=== PATIENT | female | born 1980 ===

== ENCOUNTER 2017-02-05 20:32 | Emergency (ER) | payer BC, OTHER ==
[2017-02-05 20:41] VITALS: BP 131/81
--- NOTE | 2017-02-05 20:42 | UC ---
[facility] HPI - HPI Summary HPI Summary: abscess behind last upper right molar---per patient it has doubled in size today -feels like she cannot close her mouth - History of Current Complaint Chief Complaint: UCDentalProblem Stated Complaint: DENTAL PAIN Time Seen by Provider: 02/05/17 20:39 Hx Obtained From: Patient Hx Last Menstrual Period: 01/20/17 ?: No Onset/Duration: Gradual Onset, Lasting Days - 2, Worse Since - today Severity: Moderate Pain Intensity: 7 Pain Scale Used: 0-10 Numeric Aggravating: Nothing Alleviating: Nothing Related History: Previous Dental Care on Same Tooth, Swelling - Allergies/Home Medications Allergies/Adverse Reactions: Allergies Allergy/AdvReac Type Severity Reaction Status Date / Time No Known Allergies Allergy Verified 02/05/17 20:40 PMH/Surg Hx/FS Hx/Imm Hx Previously Healthy: Yes - Surgical History Surgical History: Yes Surgery Procedure, Year, and Place: C-SECTIONS X2 - Family History Known Family History: Positive: None - Social History Occupation: Employed Full-time Lives: With Family Alcohol Use: None Substance Use Type: None Smoking Status (MU): Light Every Day Tobacco Smoker Amount Used/How Often: 1/2-1 ppd Have You Smoked in the Last Year: Yes Household Exposure Type: Cigarettes Cessation Counseling: Counseled 3+Min - 10 Min Review of Systems Constitutional: Negative Skin: Negative Eyes: Negative ENT: Dental Pain Respiratory: Negative Cardiovascular: Negative Gastrointestinal: Negative Genitourinary: Negative Motor: Negative Neurovascular: Negative Musculoskeletal: Negative Neurological: Negative Psychological: Negative All Other Systems Reviewed And Are Negative: Yes Physical Exam Triage Information Reviewed: Yes Appearance: Well-Appearing, Well-Nourished, Pain Distress Vital Signs: Initial Vital Signs Temp 98.1 F 02/05/17 20:34 Pulse 87 02/05/17 20:34 Resp 18 02/05/17 20:34 BP 131/81 02/05/17 20:34 Pulse Ox 96 02/05/17 20:34 Vital Signs Reviewed: Yes Eye Exam: Normal Eyes: Positive: Conjunctiva Clear ENT Exam: Normal ENT: Positive: Normal ENT inspection, Hearing grossly normal, Pharynx normal. Negative: Nasal congestion, Nasal drainage, Tonsillar swelling, Trismus, Muffled /hoarse voice Dental Exam: Normal Dental: Positive: Abscess @ - right upper jaw behind last molar-opened and drained during examination-purlent drainage, and immediate pain relief Neck exam: Normal Neck: Positive: Supple, Nontender Respiratory Exam: Normal Respiratory: Positive: Chest non-tender, No respiratory distress, No accessory muscle use Cardiovascular Exam: Normal Cardiovascular: Positive: RRR, Pulses Normal, Brisk Capillary Refill Musculoskeletal Exam: Normal Musculoskeletal: Positive: Strength Intact, ROM Intact, No Edema Neurological Exam: Normal Neurological: Positive: Alert, Muscle Tone Normal Psychological Exam: Normal Skin Exam: Normal Dental Complaint Course/Dx - Course Course Of Treatment: clindamycin, ibuprofen, warm water rinces, soft diet follow with dentist Thursday as planned - Differential Dx/Diagnosis Differential Diagnosis/Dx: Dental Abscess, Odontogenic Pain, Peridontic Disease Provider Diagnoses: Dental infection with abscess Discharge - Discharge Plan Condition: Stable Disposition: HOME Prescriptions: Clindamycin Cap(NF) [Clindamycin Cap 300 mg Cap(NF)] 300 mg PO TID #28 cap Patient Education Materials: Ibuprofen (By mouth), How to Stop Smoking (ED), Dental Abscess (ED) Referrals: Fer Escalona MD [Primary Care Provider] - Additional Instructions: Follow with your dentist on Thursday as planned
[2017-02-05] MEDS ORDERED: Clindamycin CAP* 150 MG PO ONE ×2 (20:51)
== END 2017-02-05 21:03 | disposition home or self-care (01) ==
LOC: UCEAST 20:32
DX: K04.7 Periapical abscess without sinus (principal); F17.210 Nicotine dependence, cigarettes, uncomplicated; Z71.6 Tobacco abuse counseling
CPT/HCPCS: 99212; A9270-GY; G0463